=== PATIENT | male | born 1995 | race Caucasian/White ===

== ENCOUNTER 2020-11-06 15:42 | Emergency (ER) | payer SELFPAY ==
[2020-11-06 15:48] VITALS: BP 137/70; PULSE 69; RESP 16; TEMP 36.9; O2SAT 99
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
[2020-11-06] MEDS: Lidocaine 2% Multi-Dose 50 ML VIAL (17:21)
== END 2020-11-06 18:25 | disposition home or self-care (01) ==
PROVIDERS: Emergency Provider Physician Assistant; PCP Pediatrics
DX: S81.012A Laceration without foreign body, left knee, initial encounter (principal); W22.8XXA Striking against or struck by other objects, initial encounter; Y93.16 Activity, rowing, canoeing, kayaking, rafting and tubing
CPT/HCPCS: 12005; 73564